=== PATIENT | male | born 1965 | race Caucasian/White ===

== ENCOUNTER 2017-02-26 10:13 | Day surgery (SDC) | payer BC ==
[2017-02-25 11:15] LABS: BASOPHILS % (AUTO) 0.7 % (0.0-2.0); EOSINOPHILS # (AUTO) 0.1 K/uL (0.0-0.4); EOSINOPHILS % (AUTO) 1.3 % (0.0-4.0); HEMOGLOBIN 15.2 g/dL (14.0-18.0); LYMPHOCYTES # (AUTO) 1.8 K/uL (1.0-5.5); LYMPHOCYTES % (AUTO) 30.1 % (20.5-51.5); MEAN CORPUSCULAR HEMOGLOBIN 27 pg (27-31); MEAN CORPUSCULAR HGB CONC 32 % (32-36); MEAN CORPUSCULAR VOLUME 84 fL (79.0-98.0); MONOCYTES # (AUTO) 0.5 K/uL (0.0-1.0); MONOCYTES % (AUTO) 9.2 % (1.7-9.3); NEUTROPHILS # (AUTO) 3.5 K/uL (1.8-7.7); NEUTROPHILS % (AUTO) 58.7 % (40.0-70.0); PLATELET COUNT (AUTO) 279 K/uL (130-430); RED BLOOD CELL COUNT(AUTO) 5.62 MIL/uL (4.2-6.2); RED CELL DISTRIBUTION WIDTH 12.8 % (9.0-15.0); WHITE BLOOD COUNT (AUTO) 5.9 K/uL (4.8-10.8)
[2017-02-25 11:18] LABS: BILIRUBIN,URINE NEGATIVE (NEGATIVE); BLOOD, URINE NEGATIVE (NEGATIVE); CLARITY/URINE CLEAR (CLEAR); COLOR,URINE YELLOW (YELLOW); GLUCOSE,URINE NEGATIVE (NEGATIVE); KETONES,URINE NEGATIVE (NEGATIVE); LEUKOCYTE ESTERASE ,URINE NEGATIVE (NEGATIVE); NITRITE, URINE NEGATIVE (NEGATIVE); PH,URINE 5.5 (5.0-8.0); PROTEIN URINE NEGATIVE (NEGATIVE); UROBILINOGEN,URINE 0.2 (0.2-1.0)
[2017-02-25 11:35] LABS: CALCIUM 9.4 mg/dL (8.4-11.0); CREATININE 0.97 mg/dL (0.55-1.30); POTASSIUM 4.2 mmol/L (3.5-5.1)
[2017-02-25 11:40] LABS: PROTHROMBIN TIME 10.5 SECS (9.5-12.5)
[2017-02-26] VITALS (9 sets, daily range): BP systolic 127–148
[~2017-02-26] VITALS: Ht 185.4 cm; Wt 87.5 kg
[2017-02-26] MEDS ORDERED: POLYMYXIN 500,000/BACIT.10,000 UNITS in NS IRR 1 L IR ONE (14:08)
[2017-02-26] MEDS ORDERED: LR 1,000 ML IV SCH (15:04)
[2017-02-26] MEDS ORDERED: MORPHINE 4 MG/ML INJ. SYRINGE IVP PRN ×3 (15:15)
[2017-02-26] MEDS ORDERED: METOCLOPRAMIDE HCL 10 MG/2 ML VIAL IVP PRN (15:15)
[2017-02-26] MEDS ORDERED: MORPHINE 4 MG/ML INJ. SYRINGE ONE (15:51)
[2017-02-26] MEDS ORDERED: HYDROmorphone 2 MG/ML VIAL ONE (15:57)
--- NOTE | 2017-02-26 16:45 | NUR ---
ADMIT NOTE Received pt from ER to the floor with a diagnosis of TENDON LACERATION. Admission process initiated. patient oriented to pain management, safety and call light-teach back done.
[2017-02-26] MEDS ORDERED: HYDROmorphone 2 MG/ML VIAL IVP ONE (17:15)
[2017-02-26] MEDS: MORPHINE SULFATE 10 MG/ML VIAL IM PRN ×2 (19:05→22:18)
--- NOTE | 2017-02-26 22:35 | NUR ---
paged paged for Dr Montano, dialed . s/w Josefina, stated that Dr Moser is on-call for Dr Montano.
[2017-02-27] VITALS: BP_SYST 129
[2017-02-27] MEDS: MORPHINE SULFATE 10 MG/ML VIAL IM PRN ×3 (01:16→07:08)
[2017-02-27 04:00] VITALS: BP_SYST 124
--- NOTE | 2017-02-27 07:50 | NUR ---
AM Rounds: Received pt sitting up in bed. No acute signs of distress noted. IV intact to LUE with no redness or swelling noted to site. Pt denies pain at this time. LEÓN bandage in place to RUE, slight swelling 1+ to fingers on right hand. Arm in sling. Neuro and circulating intact to BUE, pt denies numbness and tingling to affected extremity. Pulses palpable, brisk cap refill, able to wiggle fingers on BUE. No other needs noted at this time. Call light in reach. Pt is able to make needs known and verbalize understanding. Pt walks well unassisted to and from bathroom. Continue to monitor.
[2017-02-27 08:44] VITALS: BP_SYST 129
--- NOTE | 2017-02-27 09:43 | NUR ---
RN Rounds: Pt sleeping. Pt sleeping in bed. Breathing even and unlabored on room air. He is refusing breakfast at this time. Call light in lap. Continue to monitor.
--- NOTE | 2017-02-27 09:46 | NUR ---
Dr. Montano Here: Dr. Montano here to see patient.
[2017-02-27] MEDS ORDERED: HYDR-4100 PO (09:55)
[2017-02-27 10:13] VITALS: BP_SYST 129
--- NOTE | 2017-02-27 11:00 | NUR ---
D/C Patient Patient given medication reconciliation form and D/C instructions. Exit Care provided. Patient verbalized understanding. MD discussed with patient the results and treatment provided. Ambulatory with steady gait for discharge to home. Patient in stable condition, ID band removed. IV catheter removed, intact and dressing applied, no active bleeding. Rx given. Patient educated on pain management. All belongings sent with patient.
== END 2017-02-27 11:00 | disposition home or self-care (01) ==
LOC: SDS 10:13 → SMU 10:15 → SDS 02-27 11:00
PROVIDERS: ATTEND Orthopaedic Surgery
DX: S46.211A Strain of muscle, fascia and tendon of other parts of biceps, right arm, initial encounter (principal); W19.XXXA Unspecified fall, initial encounter; Y93.9 Activity, unspecified; Y92.89 Other specified places as the place of occurrence of the external cause; Y99.9 Unspecified external cause status; Z98.890 Other specified postprocedural states
CPT/HCPCS: 24342; 36415; 71020; 76000; 80048; 81003; 85025; 85610; 85730; 87081; 93005; J1170; J2270 ×3; J7120